=== PATIENT | female | born 1990 | race American Indian/Alaskan Native ===

== ENCOUNTER 2016-12-21 19:26 | Emergency (ER) | payer SELFPAY ==
--- NOTE | 2016-12-21 21:22 | XRay Report ---
FINAL REPORT PROCEDURE: XR WRIST 3+V RT TECHNIQUE: Four view right wrist HISTORY: wrist injury COMPARISON: No prior studies are available for comparison. FINDINGS: Mild swelling right wrist. No evidence acute fracture or dislocation. IMPRESSION: No acute fracture seen
--- NOTE | 2016-12-21 21:25 | XRay Report ---
FINAL REPORT PROCEDURE: XR HAND 3+V RT TECHNIQUE: Three views right hand HISTORY: hand injury COMPARISON: Right wrist series today FINDINGS: Mild swelling right hand. No definite acute fracture or dislocation seen. IMPRESSION: No acute fracture right hand
[2016-12-22] MEDS ORDERED: MOTRIN PO ONE (00:01)
[2016-12-22] MEDS ORDERED: TRIPLE ANTIBIOTIC TP ONE (00:01)
--- NOTE | 2016-12-22 00:06 | Emergency Department Report ---
Upper Extremity - HPI Chief Complaint: Extremity Injury, Upper Stated Complaint: RT HAND/ARM PAIN Time Seen by Provider: 12/21/16 23:49 Upper Extremity: Right Wrist, Right Hand Occurred When: Today Mechanism: Fall Severity: mild Symptoms: Yes Pain with Movement, Yes Laceration or Abrasion (mutliple abrasions on fingers), No Deformity, No Limited Range of Movement, No Numbness, No Weakness, No Swelling, No Bruising/Ecchymosis Other History: 26-year-old female no significant past medical history presents with complaint of multiple abrasions to right hand status post mechanical fall this evening. Patient states she tripped on a piece of concrete sticking out of the sidewalk near her home tonight. Was witnessed by her partner who is at bedside. Patient complaining of pain in her distal right hand and fingers. Denies any loss of consciousness denies any other injuries. States that her tetanus vaccine is up-to-date and she last received in 2012. ED Review of Systems ROS: Stated complaint: RT HAND/ARM PAIN Other details as noted in HPI Constitutional: denies: chills, fever Eyes: denies: eye pain, eye discharge, vision change ENT: denies: ear pain, throat pain Respiratory: denies: cough, shortness of breath, wheezing Cardiovascular: denies: chest pain, palpitations Endocrine: no symptoms reported Gastrointestinal: denies: abdominal pain, nausea, diarrhea Genitourinary: denies: urgency, dysuria, discharge Musculoskeletal: denies: back pain, joint swelling, arthralgia Skin: denies: rash, lesions Neurological: denies: headache, weakness, paresthesias Psychiatric: denies: anxiety, depression Hematological/Lymphatic: denies: easy bleeding, easy bruising ED Past Medical Hx - Past Medical History Previous Medical History?: No - Surgical History Past Surgical History?: No - Social History Smoking Status: Never Smoker Substance Use Type: None - Medications Home Medications: Home Medications Medication Instructions Recorded Confirmed Last Taken Type Ibuprofen [Motrin] 800 mg PO Q8HR PRN #30 tablet 12/22/16 Unknown Rx Neomycn/Bacitrc/Polymyx/Pramox 1 applicatio TP BID #1 oint...g. 12/22/16 Unknown Rx [Triple Antibioti-Pain Rlf Oint] Upper Extremity Exam - Exam General: Vital signs noted. No distress. Alert and acting appropriately. Head and Torso: No HEENT Abnormality, No Neck Tenderness, No Chest/Lungs Abnormality, No Abdominal Tenderness, No Back Tenderness Shoulder Exam: Yes Normal Range of Motion in Shoulder, No Shoulder Tenderness, No Clavicle Tenderness, No Shoulder Deformity, No AC Joint Tenderness Arm Exam: No Arm/Humerus Tenderness, No Arm Deformity Elbow: No Elbow Tenderness, No Normal Range of Motion in Elbow, No Elbow Deformity Forearm: No Forearm Tenderness, No Forearm Deformity, No Pain with Pronation, No Pain with Supination Wrist: Yes Normal ROM in Wrist (wrist flexion and extension and forearm pronation and supination fully intact on exam), No Wrist Tenderness, No Wrist Deformity, No Snuffbox Tenderness (patient has no snuffbox tenderness on exam), No Pain with Axial Thumb Compression Hand: Yes Normal ROM in Digit(s) (range of motion all MCPs PIPs DIPs and lumbricals fully intact on clinical exam), No Hand Tenderness, No Hand Deformity , No Digit Tenderness, No Digit(s) Deformity, No Tendon Dysfunction CMS Exam: Yes Broken Skin (she has multiple abrasions on fingers), Yes Normal Distal Pulses (still capillary refill less than one second in all fingers distal radial and ulnar pulses intact on exam), Yes Normal Capillary Refill, Yes Normal Distal Sensation Hand L/R Back: 1 - pt has abrasions near PIP joints on third and fourth digits near knuckles, no large deep lacerations, visibly ranging all fingers and is able to make a fist without significant difficulty 2 - Approximately 2 cm diameter abrasion here ED Course Vital Signs 12/21/16 19:45 Temperature 99.1 F Pulse Rate 115 H Respiratory 16 Rate Blood Pressure 123/91 O2 Sat by Pulse 100 Oximetry ED Medical Decision Making - Medical Decision Making A/P: Mechanical fall, right hand/wrist sprain, multiple abrasions 1-tetanus vaccine status up-to-date as of 2012 2-bacitracin ointment to abrasion sites right hand 3-Motrin 800mg when necessary 4-RICE therapy, volar wrist splint when necessary. Patient has no snuffbox tenderness and range of motion MCPs PIPs DIPs wrist and forearm fully intact on clinical exam Critical care attestation.: If time is entered above; I have spent that time in minutes in the direct care of this critically ill patient, excluding procedure time. ED Disposition Clinical Impression: Abrasions of multiple sites Sprain of hand, right Qualifiers: Encounter type: initial encounter Qualified Code(s): S63.91XA - Sprain of unspecified part of right wrist and hand, initial encounter Right wrist sprain Qualifiers: Encounter type: initial encounter Qualified Code(s): S63.501A - Unspecified sprain of right wrist, initial encounter Disposition: TO HOME OR SELFCARE Is pt being admited?: No Does the pt Need Aspirin: No Condition: Stable Instructions: Hand Sprain (ED), RICE Therapy (ED), Abrasion (ED) Prescriptions: Ibuprofen [Motrin] 800 mg PO Q8HR PRN #30 tablet PRN Reason: Pain Neomycn/Bacitrc/Polymyx/Pramox [Triple Antibioti-Pain Rlf Oint] 1 applicatio TP BID #1 oint...g. Referrals: [facility] [place] [Outside] - 3-5 Days [facility] [Provider Group] - 3-5 Days Forms: Accompanied Note, Work/School Release Form(ED) Time of Disposition: 00:07
[2016-12-22 04:54] VITALS: BP 123/87
== END 2016-12-22 01:32 | disposition home or self-care (01) ==
LOC: ED 19:26
DX: S63.8X1A Sprain of other part of right wrist and hand, initial encounter (principal); S60.414A Abrasion of right ring finger, initial encounter; S60.412A Abrasion of right middle finger, initial encounter; W01.198A Fall on same level from slipping, tripping and stumbling with subsequent striking against other object, initial encounter; Y93.89 Activity, other specified; Y92.89 Other specified places as the place of occurrence of the external cause; Y99.8 Other external cause status
CPT/HCPCS: 99283; A6250